=== PATIENT | male | born 1985 | race Caucasian/White ===

== ENCOUNTER 2021-04-14 06:54 | Emergency (ER) | payer OTHER ==
[~2021-04-14] VITALS: Ht 180.3 cm; Wt 109.1 kg
[2021-04-14 07:08] VITALS: BP 134/86
[2021-04-14] MEDS ORDERED: CYCL7.5T21 PO (07:25)
--- NOTE | 2021-04-14 07:27 | PHYS DOC ---
Past History Past Surgical History: Other Alcohol Use: None Adult General Chief Complaint Chief Complaint: BACK INJURY HPI HPI Patient is a 35-year-old male presenting via POV for back pain. Reports he is healthy with no diagnosed medical issues and services a local [employer]. Reports he was on the job walking into a house and after being on scene noticed that he had left lower back pain with some mild radiation into his left gluteal region. Has history of muscle strains in his back before and feels this is similar. Denies any obvious trauma, falls, pops/clicks or other mechanism of injury. No loss of bladder/bowels, history of fever, steroid use, IV drug use, midline back pain Review of Systems Review of Systems Fourteen body systems of review of systems have been reviewed. See HPI for pertinent positives and negative responses, other fajardo all other systems are negative, non-pertinent or non-contributory Allergies Allergies Allergies Coded Allergies Type Severity Reaction Last Updated Verified No Known Drug Allergies 04/14/21 No Physical Exam Physical Exam Constitutional: Well developed, well nourished, no acute distress, non-toxic appearance. HENT: Normocephalic, atraumatic, bilateral external ears normal, oropharynx moist, no oral exudates, nose normal. Eyes: PERRLA, EOMI, conjunctiva normal, no discharge. Neck: Normal range of motion, no tenderness, supple, no stridor. Cardiovascular: Heart rate regular, sinus rhythm, no murmurs rubs or gallops Lungs & Thorax: Bilateral breath sounds clear to auscultation Abdomen: Bowel sounds normal, soft, no tenderness, no masses, no pulsatile masses. Nonsurgical abdomen, no peritoneal signs Skin: Warm, dry, no erythema, no rash. Back: No midline tenderness, no CVA tenderness. Patient has palpable taut muscle belly present to left lower lumbar region lateral to midline that is painful with palpation Extremities: No tenderness, no cyanosis, no clubbing, ROM intact, no edema. Neurologic: Alert and oriented X 3, no saddle anesthesia, normal motor & sensory function, no focal deficits noted. 2+ patellar reflexes to bilateral lower extremities Psychologic: Affect normal, judgement normal, mood normal. Current Patient Data Vital Signs Vital Signs Date Time Temp Pulse Resp B/P (MAP) Pulse Ox O2 Delivery O2 Flow Rate FiO2 04/14/21 07:08 69 18 134/86 (102) 100 EKG EKG [] Radiology/Procedures Radiology/Procedures [] Heart Score C/O Chest Pain: No Risk Factors: Risk Factors: DM, Current or recent (<one month) smoker, HTN, HLP, family history of CAD, obesity. Risk Scores: Risk Factors: DM, Current or recent (<one month) smoker, HTN, HLP, family history of CAD, obesity. Course & Med Decision Making Course & Med Decision Making ABCs, history and physical examination non-concerning. There are no red flag signs of back pain present. I have low suspicion for malignancy/mets, acute Spinal Fracture, Vertebral Osteomyelitis, Epidural Abscess, Infected or Obstructing Kidney Stone. Their presentation appears most likely to be secondary to non-emergent musculoskeletal etiology vs non-emergent disc herniation. Patient reports it feels identical to prior episodes of muscle strain that resolved with supportive care practices ED Workup: Defer imaging and labwork for outpatient follow up at this time. Patient given IM orphenadrine and Toradol with improvement in symptoms. Disposition: Discharge with continued supportive care practices and new prescription for cyclobenzaprine muscle relaxer. Strict return precautions discussed with patient with full understanding. Advised patient to follow up promptly with primary care provider [place]ano Disclaimer Dragon Disclaimer This electronic medical record was generated, in whole or in part, using a voice recognition dictation system. Departure Departure: Impression: Primary Impression: Lower back pain Disposition: HOME / SELF CARE / HOMELESS Condition: STABLE Referrals: UMA BARTON MD (PCP) Patient Instructions: Back Exercises, Back Pain, Adult Additional Instructions: You were evaluated in the Emergency Department today for back pain. Your evaluation suggests no acute abnormalities which require further intervention at this time. Your pain is most likely due to to a musculoskeletal cause that should improve with supportive care. - Move around as tolerated but avoiding heavy lifting. ``Bed rest is not recommended nor is it the best treatment for low back pain. - Medications will help control your discomfort: - -Ibuprofen (800 mg every 8 hours for pain) with food. - -Tylenol - Do not drink alcohol, drive a car, operate machinery, or get up on ladders or heights when taking any prescribed pain medications. - Do not drive home if you received prescribed pain medications here in the ED. Return to the ED immediately if you develop any of the following problems: - Leaking urine or difficulty urinating; - Inability to control your bowels; - New numbness or weakness in your legs or numbness between your legs; - Inability to walk - Fever Scripts Cyclobenzaprine Hcl (FEXMID) 7.5 Mg Tablet 1 TAB PO BID for spasm for 15 Days, #30 TAB 0 Refills Prov: TIFFANIE BROWN DO 04/14/21 TIFFANIE BROWN DO Apr 14, 2021 07:27
[2021-04-14] MEDS ORDERED: KETOROLAC 60 MG/2 ML VIAL. IM ONE (07:30)
[2021-04-14] MEDS ORDERED: ORPHENADRINE CITRATE 60 MG/2 ML VIAL. IM ONE (07:30)
== END 2021-04-14 07:35 | disposition home or self-care (01) ==
LOC: ER 06:54
DX: M54.59 Other low back pain (principal)
CPT/HCPCS: 99283